=== PATIENT | male | born 1955 | race African-American/Black ===

== ENCOUNTER 2016-06-17 17:17 | Emergency (ER) | payer MEDICAID ==
[~2016-06-17] VITALS: Ht 177.8 cm; Wt 100.0 kg
[2016-06-17 17:18] VITALS: BP 189/89; PULSE 102; RESP 24; TEMP 98.1; O2SAT 98
[2016-06-17 18:08] VITALS: BP 160/99; PULSE 80; RESP 16; O2SAT 98
[2016-06-17] MEDS ORDERED: MOBI15TA PO (18:24)
[2016-06-17] MEDS ORDERED: TYLETAB34 PO (18:24)
[2016-06-17] MEDS ORDERED: CEPH-460 PO (18:24)
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
[2016-06-17] MEDS ORDERED: KETOROLAC TROMETHAMINE 30 MG/ML (IVP) VIAL IV PUSH ONE (18:30)
== END 2016-06-17 19:03 | disposition home or self-care (01) ==
LOC: NEPE 17:17
DX: N48.89 Other specified disorders of penis (principal)
CPT/HCPCS: 96374; 99283; J1885

== ENCOUNTER 2016-06-24 22:48 | Emergency (ER) | payer OTHER, MEDICAID ==
[~2016-06-24] VITALS: Ht 182.9 cm; Wt 77.0 kg
[~2016-06-24 22:48] MED LIST: CEPH-460 PO; MOBI15TA PO; TYLETAB34 PO
[2016-06-24 22:52] VITALS: BP 144/69; PULSE 84; RESP 16; TEMP 98; O2SAT 97
[2016-06-24 22:58] VITALS: BP 151/84; PULSE 85; RESP 16; TEMP 98.6
[2016-06-24] MEDS ORDERED: traMADol/ACETAMINOPHEN 37.5/325 1 TAB PO ONE (23:15)
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
[2016-06-25 03:00] VITALS: BP 129/74; PULSE 74; RESP 16; O2SAT 98
[2016-06-25] MEDS ORDERED: MOTR200T4 PO (03:48)
[2016-06-25] MEDS ORDERED: CYCL1TAB29 PO (03:48)
== END 2016-06-25 04:23 | disposition home or self-care (01) ==
LOC: NEPE 22:48
DX: S39.012A Strain of muscle, fascia and tendon of lower back, initial encounter (principal); R20.2 Paresthesia of skin; F17.210 Nicotine dependence, cigarettes, uncomplicated; V43.62XA Car passenger injured in collision with other type car in traffic accident, initial encounter; Y99.8 Other external cause status
CPT/HCPCS: 70450; 72125; 72128; 72131; 99284; L0150

== ENCOUNTER 2017-04-02 17:32 | Emergency (ER) | payer MEDICAID ==
[~2017-04-02] VITALS: Ht 180.3 cm; Wt 103.0 kg
[~2017-04-02 17:32] MED LIST changes: -CEPH-460 PO; +CYCL10TA PO; -MOBI15TA PO; +MOTR200T4 PO; -TYLETAB34 PO
[2017-04-02 17:35] VITALS: BP 141/79; PULSE 95; RESP 18; TEMP 98.8; O2SAT 96
[2017-04-02] MEDS ORDERED: MELO7.5T27 PO (18:38)
[2017-04-02] MEDS ORDERED: HYDR-3516 PO (18:38)
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
[2017-04-02] MEDS ORDERED: IBUPROFEN 600 MG TAB PO ONE (19:30)
== END 2017-04-02 19:58 | disposition home or self-care (01) ==
LOC: NEPD 17:32
DX: M17.12 Unilateral primary osteoarthritis, left knee (principal); F17.200 Nicotine dependence, unspecified, uncomplicated
CPT/HCPCS: 73564; 99285